=== PATIENT | male | born 1945 | race Caucasian/White ===

== ENCOUNTER → 2017-02-25 | Outpatient (CLI) | payer OTHER ==
[~2017-02-25] MED LIST: NS 100 ML IV 100 ML IV ONE
[2017-02-25 09:52] LABS: CREATININE 1.34 mg/dL (0.70-1.30)
--- NOTE | 2017-02-25 12:25 | CT ---
HISTORY: Lung nodules, weight loss, and smoker. Study: CT chest with contrast Comparison: None available. Technique: Multiple axial images of the chest were obtained from the thoracic inlet to the upper abdo men after the administration of IV contrast. MIP images were obtained. Dose reduction techniques incl uding Automated Exposure Control (AEC) and adjustment of mA and kV were utilized. Findings: The mediastinum does not demonstrate significant pathological lymphadenopathy. There is no paracardi al effusion observed. The thoracic aorta is normal in its contour without evidence for aneurysmal di latation. The central pulmonary arterial system does not demonstrate central filling defects to sugg est pulmonary emboli. Moderate atherosclerotic vascular calcifications of the coronary arteries. Severe fibrosis, scarring, and apical paraseptal emphysematous changes of the lung apices. Severe cys tic changes of the bilateral lower lobes with associated fibrosis is also seen. No obvious pulmonary nodule, mass, pleural effusion, focal consolidation, or pneumothorax. Significant mural thrombus of t he visualized abdominal aorta. No significant aneurysmal dilatation. Nonspecific calcification within the right hepatic dome. Remaining upper abdominal structures appear unremarkable. Degenerative soler es of the spine. No aggressive osseous lesions. IMPRESSION: 1. No CT evidence of acute thoracic pathology. 2. No evidence of pulmonary nodules. 3. Other chronic findings as above. ACR LUNG RADS CATEGORY 1: Repeat CT chest in 12 months. Reported By:
== END ==
LOC: RAD 09:18
PROVIDERS: ATTEND Nurse Practitioner
DX: R91.8 Other nonspecific abnormal finding of lung field (principal)
CPT/HCPCS: 36415; 71260; 82565; 84520; A4222